=== PATIENT | male | born 1970 | race Caucasian/White ===

== ENCOUNTER 2020-04-30 23:10 | Emergency (ER) | payer OTHER ==
[2020-04-30 23:42] LABS: HEMOGLOBIN 16.9 gm/dl (14.0-17.5); RED BLOOD COUNT 5.47 M/UL (4.20-5.50); WHITE BLOOD COUNT 9.4 K/UL (4.5-11.0)
[2020-04-30 23:50] LABS: BUN/CREATININE RATIO 23 (0-10)
[2020-07-04] MEDS ORDERED: OXYCODONE HCL5 MG PO (06:56)
[2020-07-30] MEDS ORDERED: IPRAT-ALBUT 0.5-3 ML INH (07:46)
[2020-07-30] MEDS ORDERED: OXYCODONE HCL5 MG PO (10:00)
== END 2020-05-01 06:00 | disposition home or self-care (01) ==
LOC: ER1 23:10
PROVIDERS: Emergency Medicine
DX: E86.0 Dehydration (principal); R19.7 Diarrhea, unspecified
CPT/HCPCS: 71045; 80053; 82550; 82553; 82962; 83874; 84484; 85025; 93005; 96374; 99285; J2405

== ENCOUNTER 2020-06-30 12:47 | Inpatient (IN) | payer OTHER ==
[~2020-06-30] VITALS: Ht 172.7 cm; Wt 61.2 kg
[2020-06-30 14:59] LABS: RED BLOOD COUNT 5.19 M/UL (4.20-5.50); WHITE BLOOD COUNT 10.2 K/UL (4.5-11.0)
[2020-06-30 16:30] LABS: BUN/CREATININE RATIO 12 (0-10)
[2020-06-30] MEDS ORDERED: DOXYCYCLINE HY100 MG PO (20:10)
[2020-06-30] MEDS ORDERED: DOXEPIN HCL100 MG PO (20:11)
[2020-06-30] MEDS ORDERED: ZANAFLEX4 MG PO (20:11)
[2020-06-30] MEDS ORDERED: ROPINIROLE HCL0.5 MG PO (20:12)
[2020-06-30] MEDS ORDERED: ALBUTEROL0.63 MG/3 INH (20:13)
[2020-07-01 06:00] LABS: HEMOGLOBIN 14.7 gm/dl (14.0-17.5); RED BLOOD COUNT 4.81 M/UL (4.20-5.50); WHITE BLOOD COUNT 9.6 K/UL (4.5-11.0)
[2020-07-01 06:25] LABS: BUN/CREATININE RATIO 10 (0-10)
[2020-07-02 06:41] LABS: WHITE BLOOD COUNT 7.8 K/UL (4.5-11.0)
[2020-07-02 06:44] LABS: HEMOGLOBIN 12.6 gm/dl (14.0-17.5); RED BLOOD COUNT 4.12 M/UL (4.20-5.50)
[2020-07-02 06:56] LABS: BUN/CREATININE RATIO 12 (0-10)
[2020-07-03 04:08] LABS: WHITE BLOOD COUNT 7.2 K/UL (4.5-11.0)
[2020-07-03 04:10] LABS: RED BLOOD COUNT 4.58 M/UL (4.20-5.50)
[2020-07-03 04:44] LABS: BUN/CREATININE RATIO 8 (0-10)
[2020-07-03] MEDS ORDERED: HYDROCODON-ACE1 EAC2 PO (15:42)
[2020-07-03] MEDS ORDERED: SENNA LAX8.6 MG PO (15:42)
[2020-07-03] MEDS ORDERED: AUGMENTIN 875-1 EACH PO (15:42)
[2020-07-03] MEDS ORDERED: DOCUSATE SODIU100 MG PO (15:42)
--- NOTE | 2020-07-03 18:15 | NUR ---
PATIENT STATED HE WAS ALLERGIC TO THE PAIN MEDICATION PRESCRIBED OUTPATIENT. RN CONTACTED DR. FISHER AND SHE INSTRUCTED RN TO DISCONTINUE MEDICATION AND SHE WOULD WRITE A NEW ORDER AND FAX IT TO PATIENT'S PHARMACY WHEN SHE CAME IN TOMORROW MORNING. PATIENT VERBALIZED UNDERSTANDING. PATIENT DISCHARGED PER ORDER.
[2020-07-04] MEDS ORDERED: OXYCODONE HCL5 MG PO (06:56)
[2020-07-30] MEDS ORDERED: IPRAT-ALBUT 0.5-3 ML INH (07:46)
[2020-07-30] MEDS ORDERED: OXYCODONE HCL5 MG PO (10:00)
== END 2020-07-03 18:35 | disposition home or self-care (01) | DRG 372 ==
LOC: ER1 12:47 → MED SURG 4 17:04 → CDU 17:04 → MED SURG 4 20:00
PROVIDERS: Emergency Medicine; ADMIT Surgery
DX: K35.32 Acute appendicitis with perforation, localized peritonitis, and gangrene, without abscess (principal); E87.2 Acidosis; J44.9 Chronic obstructive pulmonary disease, unspecified; F17.210 Nicotine dependence, cigarettes, uncomplicated; Z88.6 Allergy status to analgesic agent; Z88.8 Allergy status to other drugs, medicaments and biological substances; Z88.7 Allergy status to serum and vaccine
CPT/HCPCS: 0240U; 36415; 71045; 80048; 80053; 80307; 81001; 83605; 85025; 87086; 99285; J2270; J2405; J2543; J3480; J7030; Q9967

== ENCOUNTER → 2020-07-30 | Day surgery (SDC) | payer OTHER ==
[~2020-07-30] MED LIST: ALBUTEROL0.63 MG/3 INH; AUGMENTIN 875-1 EACH PO; DOCUSATE SODIU100 MG PO; DOXEPIN HCL100 MG PO; DOXYCYCLINE HY100 MG PO; HYDROCODON-ACE1 EAC2 PO; IPRAT-ALBUT 0.5-3 ML INH; MIRALAX17 GM PO; OXYCODONE HCL5 MG PO; ROPINIROLE HCL0.5 MG PO; SENNA LAX8.6 MG PO; TORADOL 10 MG T10 MG PO; ZANAFLEX4 MG PO
== END | disposition home or self-care (01) ==
LOC: OR 06:52
PROVIDERS: Surgery
PROC: 0DTJ4ZZ Resection of Appendix, Percutaneous Endoscopic Approach (ICD-10-PCS; principal; 2020-07-30 09:30)
DX: K35.33 Acute appendicitis with perforation, localized peritonitis, and gangrene, with abscess (principal); K38.8 Other specified diseases of appendix; K66.0 Peritoneal adhesions (postprocedural) (postinfection); J44.9 Chronic obstructive pulmonary disease, unspecified; G47.30 Sleep apnea, unspecified; F17.210 Nicotine dependence, cigarettes, uncomplicated; R01.1 Cardiac murmur, unspecified; Z79.899 Other long term (current) drug therapy; Z88.6 Allergy status to analgesic agent; Z88.7 Allergy status to serum and vaccine; Z88.8 Allergy status to other drugs, medicaments and biological substances; Z91.048 Other nonmedicinal substance allergy status; Z91.041 Radiographic dye allergy status; Z91.013 Allergy to seafood
CPT/HCPCS: J0690; J1100; J1170; J1200; J1885; J2001; J2250; J2405; J2704; J2710; J3010; J7030; J7120

== ENCOUNTER 2020-08-01 11:04 | Emergency (ER) | payer OTHER ==
[~2020-08-01 11:04] MED LIST changes: -MIRALAX17 GM PO; -TORADOL 10 MG T10 MG PO
[2020-08-01 11:47] LABS: HEMOGLOBIN 14.4 gm/dl (14.0-17.5); RED BLOOD COUNT 4.76 M/UL (4.20-5.50); WHITE BLOOD COUNT 7.1 K/UL (4.5-11.0)
[2020-08-01 12:05] LABS: BUN/CREATININE RATIO 15 (0-10)
[2020-08-01] MEDS ORDERED: TORADOL 10 MG T10 MG PO (15:58)
[2020-08-01] MEDS ORDERED: MIRALAX17 GM PO (16:01)
== END 2020-08-01 16:18 | disposition home or self-care (01) ==
LOC: ER1 11:04
PROVIDERS: Nurse Practitioner
DX: G89.18 Other acute postprocedural pain (principal); K59.00 Constipation, unspecified; F15.90 Other stimulant use, unspecified, uncomplicated; J44.9 Chronic obstructive pulmonary disease, unspecified; F17.210 Nicotine dependence, cigarettes, uncomplicated; Z88.8 Allergy status to other drugs, medicaments and biological substances; Z79.899 Other long term (current) drug therapy; Z90.89 Acquired absence of other organs
CPT/HCPCS: 80053; 80307; 81001; 82550; 82553; 83605; 83690; 83874; 84484; 85025; 86140; 96374; 96375; 99284; J1885; J2405; J7030; Q9967

== ENCOUNTER 2020-08-04 21:03 | Emergency (ER) | payer OTHER ==
[~2020-08-04 21:03] MED LIST changes: +MIRALAX17 GM PO; +TORADOL 10 MG T10 MG PO
[2020-08-04 22:03] LABS: HEMOGLOBIN 13.8 gm/dl (14.0-17.5); RED BLOOD COUNT 4.54 M/UL (4.20-5.50); WHITE BLOOD COUNT 8.4 K/UL (4.5-11.0)
[2020-08-04 22:31] LABS: BUN/CREATININE RATIO 12 (0-10)
== END 2020-08-04 23:10 | disposition home or self-care (01) ==
LOC: ER1 21:03
PROVIDERS: Emergency Medicine
DX: G89.18 Other acute postprocedural pain (principal); Z79.899 Other long term (current) drug therapy; F17.200 Nicotine dependence, unspecified, uncomplicated
CPT/HCPCS: 80053; 85025; 99284